=== PATIENT | female | born 1970 | race Two or more races ===

== ENCOUNTER 2024-06-24 18:11 | Emergency (ER) | payer MEDICAID ==
[~2024-06-24] VITALS: Ht 152.4 cm; Wt 72.0 kg
[2024-06-24 18:14] VITALS: TEMP 98.2
[2024-06-24] MEDS: SODIUM CHLORIDE 0.9% 1,000 ML IV ONE (20:04)
[2024-06-24] MEDS: DiphenhydrAMINE HCL 50 MG/ML VIAL IVP ONE (20:04)
[2024-06-24] MEDS: ACETAMINOPHEN 325 MG TABLET PO ONE (20:04)
[2024-06-24] MEDS: KETOROLAC TROMETHAMINE 30 MG/ML VIAL IVP ONE (20:05)
[2024-06-24] MEDS: METOCLOPRAMIDE HCL 5 MG/ML 2 ML VIAL IVP ONE (20:05)
[2024-06-24] MEDS ORDERED: METO5TAB95 PO (22:06)
[2024-06-24 22:08] VITALS: BP 122/76; PULSE 76; RESP 18; O2SAT 99
== END 2024-06-24 22:20 | disposition home or self-care (01) ==
LOC: EMS 18:15
DX: G43.909 Migraine, unspecified, not intractable, without status migrainosus (principal); R11.2 Nausea with vomiting, unspecified
CPT/HCPCS: 99284; 96374; 96375; 96361; J1200; J1885; J2765; J7030